=== PATIENT | female | born 1995 ===

== ENCOUNTER → 2019-12-11 | Outpatient (CLI) | payer BC | LOC: ZCOL.LAB 11:12 | DX: Z20.828 Contact with and (suspected) exposure to other viral communicable diseases (principal) ==

== ENCOUNTER → 2019-12-17 | Outpatient (CLI) | payer BC | LOC: COL.LAB 14:38 | DX: Z03.818 Encounter for observation for suspected exposure to other biological agents ruled out (principal) ==